=== PATIENT | female | born 1945 | race Caucasian/White ===

== ENCOUNTER → 2020-01-28 13:46 | Outpatient (BNVA) | payer MEDICARE, SELFPAY | PROVIDERS: Family Provider Nurse Practitioner Family; PCP Nurse Practitioner Family; Visit Provider Emergency Medicine | DX: R05 Cough (principal); R06.2 Wheezing; I10 Essential (primary) hypertension; R53.83 Other fatigue; R60.9 Edema, unspecified | CPT/HCPCS: 71046 ==

== ENCOUNTER → 2020-01-29 11:02 | Outpatient (BNVA) | payer MEDICARE, SELFPAY | PROVIDERS: Family Provider Nurse Practitioner Family; PCP Nurse Practitioner Family; Visit Provider Emergency Medicine | DX: R05 Cough (principal); R06.2 Wheezing; H69.83 Other specified disorders of Eustachian tube, bilateral; F41.9 Anxiety disorder, unspecified; H93.90 Unspecified disorder of ear, unspecified ear; I10 Essential (primary) hypertension; R53.83 Other fatigue; R60.9 Edema, unspecified | CPT/HCPCS: 80053; 80061; 83880; 84443; 85025 ==

== ENCOUNTER → 2020-04-29 13:47 | Outpatient (BNVA) | payer MEDICARE, SELFPAY | PROVIDERS: Family Provider Nurse Practitioner Family; PCP Nurse Practitioner Family; Visit Provider Emergency Medicine | DX: R10.11 Right upper quadrant pain (principal); R07.81 Pleurodynia | CPT/HCPCS: 71046; 80053; 81000; 83690; 85025 ==

== ENCOUNTER → 2021-11-17 16:05 | Outpatient (BNVA) | payer MEDICARE, SELFPAY | PROVIDERS: Family Provider Nurse Practitioner Family; Visit Provider Emergency Medicine | DX: R53.83 Other fatigue (principal); R60.9 Edema, unspecified; R05.9 Cough, unspecified; R06.02 Shortness of breath; I42.8 Other cardiomyopathies; R00.2 Palpitations | CPT/HCPCS: 80053; 83880; 84443; 85025 ==

== ENCOUNTER → 2021-11-18 09:21 | Outpatient (BNVA) | payer MEDICARE, SELFPAY | PROVIDERS: Family Provider Nurse Practitioner Family; Visit Provider Emergency Medicine | DX: R53.83 Other fatigue (principal); M84.48XA Pathological fracture, other site, initial encounter for fracture | CPT/HCPCS: 71046 ==

== ENCOUNTER → 2023-05-28 14:34 | Outpatient (BNVA) | payer MEDICARE, SELFPAY | PROVIDERS: Family Provider Nurse Practitioner Family; PCP Family Medicine; Visit Provider Nurse Practitioner Family | DX: M79.89 Other specified soft tissue disorders (principal) | CPT/HCPCS: 73590 ==